=== PATIENT | female | born 1965 | race Caucasian/White ===

== ENCOUNTER 2019-12-07 14:49 | Inpatient (IN) | payer SELFPAY ==
[~2019-12-07] VITALS: Ht 177.8 cm; Wt 123.5 kg
[2019-12-07 14:30] VITALS: BP 149/94
--- NOTE | 2019-12-07 14:30 | NUR ---
Pt arrived to the floor by EMS. Report was received from Nash at [facility]. Dr. Paulino and cardiology notified of pt's arrival.
[2019-12-07] MEDS ORDERED: HEPARIN for IV BOLUS 10,000 UNIT/10 ML VIAL. IV PRN (16:30)
[2019-12-07] MEDS: ASPIRIN ENTERIC COATED 81 MG TABLET.DR. PO SCH (16:30)
[2019-12-07] MEDS ORDERED: HEPARIN 25,000UTS/250ML PREMIX 250 ML IV PRN (16:30)
[2019-12-07 19:20] VITALS: BP 136/83
[2019-12-07] MEDS: METOPROLOL TART IMMED RELEASE 50 MG TABLET. PO SCH (20:39)
[2019-12-07] MEDS ORDERED: ATORVASTATIN CALCIUM 40 MG TABLET. PO SCH (21:00)
--- NOTE | 2019-12-07 21:37 | PDOC1 ---
History and Physical Date of Admission Date of Admission DATE: 12/07/19 TIME: 21:37 Identification/Chief Complaint Chief Complaint chest pain Problems: (1) Chest pain Source Source: Chart review, Patient History of Present Illness History of Present Illness 54 year old obese female with sudden onset of chest pain substernal nonradiating. came to [facility]. found to have normal EKG but elevated trop so sent to [place] for further work up no chest pain on arrival. started on heparin drip. no risk factors per patient. no hx of premature cad. no smoking drugs or etoh no prior cardiac work up. Past Medical History Past Medical History reviewed and denies Past Surgical History Past Surgical History reviewed and denies Family History Family History reviewed and denies Social History Smoke: No ALCOHOL: none Drugs: None Current Medications Current Medications Current Medications Heparin Sodium/ Dextrose 250 ml @ 10 mls/hr CONT PRN IV PER PROTOCOL; Start 12/07/19 at 16:30 Heparin Sodium (Porcine) (Heparin Sodium) 3,050 unit PRN Q6HRS PRN IV FOR UFH LEVEL LESS THAN 0.2; Start 12/07/19 at 16:30 Aspirin (Ecotrin) 81 mg DAILYWBKFT PO ; Start 12/07/19 at 16:30 Atorvastatin Calcium (Lipitor) 40 mg QHS PO Last administered on 12/07/19at 20:38; Start 12/07/19 at 21:00 Metoprolol Tartrate (Lopressor) 50 mg BID PO Last administered on 12/07/19at 20:39; Start 12/07/19 at 21:00 Allergies Allergies: Coded Allergies: No Known Drug Allergies (Unverified , 12/07/19) ROS Review of System CONSTITUTIONAL: No fever or chills EYES: No recent changes SKIN: No rash or itching CARDIOVASCULAR: No chest pain, syncope, palpitations, or edema RESPIRATORY: No SOB or cough GASTROINTESTINAL: No nausea, vomiting or abdominal pain NEUROLOGICAL: No headaches or weakness ENDOCRINE: No cold or heat intolerance GENITOURINARY: No urgency or frequency of urination MUSCULOSKELETAL: No back pain or joint pain LYMPHATICS: No enlarged lymph nodes PSYCHIATRIC: No anxiety or depression Physical Exam Physical Exam GENERAL: No apparent distress. Alert and oriented. HEENT: Head normocephalic, atraumatic. NECK: Supple LUNGS: Clear to auscultation. HEART: RRR, S1, S2 present, pulses intact ABDOMEN: Soft, positive bowel sounds. EXTREMITIES: No cyanosis or edema. NEUROLOGIC: Normal speech, normal tone PSYCHIATRIC: Normal affect, normal mood. SKIN: No ulceration. Vitals Vitals Vital Signs Date Time Temp Pulse Resp B/P (MAP) Pulse Ox O2 Delivery O2 Flow Rate FiO2 12/07/19 20:39 82 136/83 12/07/19 19:20 98.2 16 96 Room Air 98.2 Labs Labs Laboratory Tests Test 12/07/19 20:05 Heparin Anti-Xa Act, Unfractionated 0.44 IU/mL (0.30-0.70) Laboratory Tests Test 12/07/19 20:05 Heparin Anti-Xa Act, Unfractionated 0.44 IU/mL (0.30-0.70) VTE Prophylaxis Ordered VTE Prophylaxis Devices: Yes VTE Pharmacological Prophylaxi: Yes Assessment/Plan Assessment/Plan A/P NSTEMI- admit to cardiac tele bed. trend troponins. start heparin drip. check lipids, BMP, CBC. start BB, statin therapy. await cards eval. NPO past midnight Obesity dvt ppx: heparin full code Justicifation of Admission Dx: Justifications for Admission: Justification of Admission Dx: Yes ZENA ANG MD Dec 07, 2019 21:37
[2019-12-07 23:59] VITALS: BP 110/66
[2019-12-08] VITALS (13 sets, daily range): BP systolic 100–131; BP diastolic 64–87
[2019-12-08] MEDS ORDERED: IODIXANOL 320 MG/ML 100 ML VIAL. ONE (07:37)
[2019-12-08] MEDS ORDERED: LIDOCAINE 1% Multi-Dose 20 ML VIAL. ONE (07:37)
[2019-12-08] MEDS ORDERED: HEPARIN for ARTERIAL LINE 1,500 ML ONE (07:38)
[2019-12-08] MEDS ORDERED: IOHEXOL 300 MG/ML 100ML VIAL. ONE ×2 (07:39→09:26)
[2019-12-08] MEDS: ASPIRIN ENTERIC COATED 81 MG TABLET.DR. PO SCH (08:08)
[2019-12-08] MEDS: METOPROLOL TART IMMED RELEASE 50 MG TABLET. PO SCH (08:08)
[2019-12-08] MEDS ORDERED: MIDAZOLAM HCL/PF 5 MG/5 ML VIAL. ONE (08:16)
[2019-12-08] MEDS ORDERED: fentaNYL PF VIAL 100 MCG/2 ML VIAL ONE (08:16)
[2019-12-08] MEDS ORDERED: HEPARIN for IV BOLUS 10,000 UNIT/10 ML VIAL. ONE (08:47)
[2019-12-08] MEDS ORDERED: VERAPAMIL 5 MG/2 ML VIAL. ONE ×2 (08:47→09:00)
[2019-12-08] MEDS ORDERED: NITROGLYCERIN 200 MCG/2 ML SYRINGE FOR CATH/VASC LAB. ONE (08:48)
--- NOTE | 2019-12-08 09:05 | PDOC ---
PROGRESS NOTES Vitals Vitals Vital Signs Date Time Temp Pulse Resp B/P (MAP) Pulse Ox O2 Delivery O2 Flow Rate FiO2 12/08/19 08:08 67 12/08/19 07:45 97.5 14 131/87 (102) 99 Room Air 97.5 Labs LABS Laboratory Tests Test 12/07/19 20:05 12/08/19 01:50 Heparin Anti-Xa Act, Unfractionated 0.44 IU/mL (0.30-0.70) 0.58 IU/mL (0.30-0.70) Comment Review of Relevant I have reviewed the following items rony (where applicable) has been applied. Labs Laboratory Tests Test 12/07/19 20:05 12/08/19 01:50 Heparin Anti-Xa Act, Unfractionated 0.44 IU/mL (0.30-0.70) 0.58 IU/mL (0.30-0.70) Laboratory Tests Test 12/07/19 20:05 12/08/19 01:50 Heparin Anti-Xa Act, Unfractionated 0.44 IU/mL (0.30-0.70) 0.58 IU/mL (0.30-0.70) Medications Current Medications Heparin Sodium/ Dextrose 250 ml @ 10 mls/hr CONT PRN IV PER PROTOCOL Last administered on 12/08/19at 03:27; Start 12/07/19 at 16:30 Heparin Sodium (Porcine) (Heparin Sodium) 3,050 unit PRN Q6HRS PRN IV FOR UFH LEVEL LESS THAN 0.2; Start 12/07/19 at 16:30 Aspirin (Ecotrin) 81 mg DAILYWBKFT PO Last administered on 12/08/19at 08:08; Start 12/07/19 at 16:30 Atorvastatin Calcium (Lipitor) 40 mg QHS PO Last administered on 12/07/19at 20:38; Start 12/07/19 at 21:00 Metoprolol Tartrate (Lopressor) 50 mg BID PO Last administered on 12/08/19at 08:08; Start 12/07/19 at 21:00 Iodixanol (Visipaque 320) 100 ml STK-MED ONCE .ROUTE ; Start 12/08/19 at 07:37; Stop 12/08/19 at 07:37; Status DC Lidocaine HCl (Lidocaine 1% 20ml Vial) 20 ml STK-MED ONCE .ROUTE ; Start 12/08/19 at 07:37; Stop 12/08/19 at 07:37; Status DC Heparin Sodium/ Sodium Chloride 1,500 ml @ As Directed STK-MED ONCE .ROUTE ; Start 12/08/19 at 07:38; Stop 12/08/19 at 07:38; Status DC Iohexol (Omnipaque 300 Mg/ml) 100 ml STK-MED ONCE .ROUTE ; Start 12/08/19 at 07:39; Stop 12/08/19 at 07:40; Status DC Fentanyl Citrate (Fentanyl 2ml Vial) 100 mcg STK-MED ONCE .ROUTE ; Start 12/08/19 at 08:16; Stop 12/08/19 at 08:17; Status DC Midazolam HCl (Versed) 5 mg STK-MED ONCE .ROUTE ; Start 12/08/19 at 08:16; Stop 12/08/19 at 08:17; Status DC Heparin Sodium (Porcine) (Heparin Sodium) 10,000 unit STK-MED ONCE .ROUTE ; Start 12/08/19 at 08:47; Stop 12/08/19 at 08:48; Status DC Verapamil HCl (Verapamil) 5 mg STK-MED ONCE .ROUTE ; Start 12/08/19 at 08:47; Stop 12/08/19 at 08:48; Status DC Nitroglycerin (Nitroglycerin) 200 mcg STK-MED ONCE .ROUTE ; Start 12/08/19 at 08:48; Stop 12/08/19 at 08:48; Status DC Vitals/I & O Vital Sign - Last 24 Hours 12/07/19 12/07/19 12/07/19 12/07/19 14:30 15:00 19:20 20:00 Temp 98.3 98.2 98.3 98.2 Pulse 80 82 Resp 20 16 B/P (MAP) 149/94 (112) 136/83 (100) Pulse Ox 97 96 O2 Delivery Room Air Room Air Room Air Room Air 12/07/19 12/07/19 12/08/19 12/08/19 20:39 23:59 03:22 07:45 Temp 97.8 98.0 97.5 97.8 98.0 97.5 Pulse 82 63 62 71 Resp 16 16 14 B/P (MAP) 136/83 110/66 (81) 119/71 (87) 131/87 (102) Pulse Ox 97 97 99 O2 Delivery Room Air Room Air Room Air 12/08/19 08:08 Pulse 67 Intake and Output 12/07/19 12/07/19 12/08/19 15:00 23:00 07:00 Intake Total 240 ml 350 ml Balance 240 ml 350 ml Justicifation of Admission Dx: Justifications for Admission: Justification of Admission Dx: Yes GLENN MARSHALL MD Dec 08, 2019 09:05
[2019-12-08] MEDS ORDERED: MIDAZOLAM HCL/PF 5 MG/5 ML VIAL. IV ONE (09:30)
[2019-12-08] MEDS ORDERED: fentaNYL PF VIAL 100 MCG/2 ML VIAL IV ONE (09:30)
[2019-12-08] MEDS ORDERED: IOHEXOL 300 MG/ML 100ML VIAL. IART ONE (09:30)
[2019-12-08] MEDS ORDERED: LIDOCAINE 1% Multi-Dose 20 ML VIAL. INJ ONE (09:30)
[2019-12-08] MEDS ORDERED: IV NORMAL SALINE 1000ML BAG 1,000 ML IV SCH (09:51)
[2019-12-08] MEDS ORDERED: NITROGLYCERIN SUBLINGUAL 0.4 MG BOTTLE OF 25. SL PRN (10:00)
[2019-12-08] MEDS ORDERED: 0.9 % SODIUM CHLORIDE 10 ML DISP.SYRIN. IV PRN (10:00)
[2019-12-08] MEDS ORDERED: LISINOPRIL 5 MG TABLET. PO SCH (10:00)
[2019-12-08 10:23] LABS: BASO # 0.1 x10^3/uL (0.0-0.2); BASO % 3 % (0-3); EOS % 1 % (0-3); HEMATOCRIT 43.7 % (36.0-47.0); LYMPH % 29 % (24-48); MEAN CORPUSCULAR HEMOGLOBIN 35 pg (25-35); MEAN CORPUSCULAR HGB CONC 34 g/dL (31-37); MEAN CORPUSCULAR VOLUME 101 fL (79-100); MONO # 0.5 x10^3/uL (0.0-1.1); MONO % 13 % (0-9); NEUT # 1.9 x10^3/uL (1.8-7.7); NEUT % 54 % (31-73); PLATELET COUNT 172 x10^3/uL (140-400); RED BLOOD COUNT 4.33 x10^6/uL (3.50-5.40); RED CELL DISTRIBUTION WIDTH 13.1 % (11.5-14.5); WHITE BLOOD COUNT 3.5 x10^3/uL (4.0-11.0)
[2019-12-08 10:30] LABS: CALCIUM 8.5 mg/dL (8.5-10.1); GFR 57.8; POTASSIUM 4.8 mmol/L (3.5-5.1)
--- NOTE | 2019-12-08 10:41 | NUR ---
SS following for discharge planning. SS reviewed pt chart and discussed with pt RN. Pt is from home and is currently on room air. Pt having heart cath today. Discharge plan is to home when ready. SS will continue to follow for discharge planning.
[2019-12-08 10:45] LABS: CHOLESTEROL/HDL RATIO 2.5
--- NOTE | 2019-12-08 11:39 | CARD ---
MR#: [id number] Date of Study: 12/08/2019 Ordering Physician: ASHLEIGH MAURICE, Referring Physician: ASHLEIGH MAURICE, Tech: Pauline Boobutch APPROVED REPORT Procedures Left heart catheterization Left ventriculogram Selective coronary angiogram Aortic root injection The patient is a 54-year-old female who was admitted to [facility] for episodes of chest pre ssure. Her troponin elevated to 3.4 and she was transferred ported to [facility] for furthe r treatment and probable cardiac catheterization. Risks and benefits of cardiac catheterization were discussed with the patient and she agreed to proceed. After informed consent was obtained the patient was brought to the heart catheterization lab. The ar ea of the right radial artery was prepared in the usual manner with Betadine, sterile draping and loc al anesthetic after normal Michael's test. A quick catheter was used to engage the right radial artery . A wire was placed but on 2 separate occasions the wire could not advance more than approximately 4 inches into the vessel. Therefore the wire was removed and direct pressure was used for hemostasis. We then turned our attention to the area of the right femoral artery which had previously been prep ared. An 18-gauge needle was used to enter the right femoral artery, a wire placed and a 6 [place]ian sh eath placed over the wire. Initially a 6 [place]err[place]ian JL4 diagnostic catheter was advanced to the ascendin g aorta. There was some damping on 2 occasions and therefore the catheter was removed. A pigtail ca theter was advanced the ascending aorta and a 30 degree YORUBA aortic root injection was performed. The catheter was then advanced the left ventricle. A 30 degree FREEMAN left ventriculogram was performed. Pullback pressures were measured. Following this and the finding of a normal aortic root, a 6 [place]erratian JL4 diagnostic catheter was used to engage the left coronary system and sequential injections of shelby ious views were obtained. A 6 [place]ian Clint right diagnostic catheter was used to engage the right coronary artery and sequential injections in various views were obtained. The catheter was removed from the patient. All catheter exchanges were over a J-wire. The sheath was removed and the punctur e site sealed with an Angio-Seal product. There were no immediate complications. Findings. Hemodynamics. LV pressure of 128/12, 22. Aortic root pressure of 128/80. Coronaries. Left main. The left main was normal vessel with no lesions. Left anterior descending. The left anterior descending was a moderate to moderately large vessel. I n its midportion it had an abrupt taper. There was no clear lesion at this point but the patient had mild diffuse disease of the remaining of the vessel. No specific lesion was identified but an episo de of a previous spontaneous coronary dissection cannot be excluded. Left circumflex. The left circumflex was a large dominant vessel. It had a proximal 25% lesion. Right coronary artery. The right coronary was a moderate size vessel. It was non-dominant. It had no lesions. Left ventriculogram. The left ventricle had distal anterior apical hypokinesis. Ejection fraction was estimated at 40%. Aortic root injection. The aortic root appeared normal without dilatation or aortic insufficiency. <Conclusion> Mildly decreased LV systolic function as above with distal anterior apical hypokinesis. Mild disease in the left circumflex vessel. The left anterior descending vessel has a rapid taper in its midportion with a diffusely small vessel distal to this. There are no localized significant lesions. However a previous episode of possible spontaneous coronary artery dissection cannot be excluded. Signed by : Nash Fisher MD Electronically Approved : 12/08/2019 11:38:37
[2019-12-08] MEDS ORDERED: CLOP75TA PO (14:22)
[2019-12-08] MEDS ORDERED: ATOR40TA59 PO (14:22)
[2019-12-08] MEDS ORDERED: ASPI-612 PO (14:22)
[2019-12-08] MEDS ORDERED: METO-239 PO (14:22)
[2019-12-08] MEDS ORDERED: LEVO50TA PO (14:24)
--- NOTE | 2019-12-08 14:38 | PDOC3 ---
Discharge Summary Visit Information Date of Admission: Dec 07, 2019 Date of Discharge: Dec 08, 2019 Brief Hospital Course Allergies Allergies Coded Allergies Type Severity Reaction Last Updated Verified No Known Drug Allergies 12/07/19 No Vital Signs Vital Signs Date Time Temp Pulse Resp B/P (MAP) Pulse Ox O2 Delivery O2 Flow Rate FiO2 12/08/19 13:13 72 100/64 12/08/19 11:00 97.5 18 93 Room Air 97.5 12/08/19 09:49 2.0 Lab Results Laboratory Tests Test 12/07/19 20:05 12/08/19 01:50 12/08/19 10:15 Heparin Anti-Xa Act, Unfractionated 0.44 IU/mL (0.30-0.70) 0.58 IU/mL (0.30-0.70) White Blood Count 3.5 x10^3/uL (4.0-11.0) Red Blood Count 4.33 x10^6/uL (3.50-5.40) Hemoglobin 15.0 g/dL (12.0-15.5) Hematocrit 43.7 % (36.0-47.0) Mean Corpuscular Volume 101 fL (79-100) Mean Corpuscular Hemoglobin 35 pg (25-35) Mean Corpuscular Hemoglobin Concent 34 g/dL (31-37) Red Cell Distribution Width 13.1 % (11.5-14.5) Platelet Count 172 x10^3/uL (140-400) Neutrophils (%) (Auto) 54 % (31-73) Lymphocytes (%) (Auto) 29 % (24-48) Monocytes (%) (Auto) 13 % (0-9) Eosinophils (%) (Auto) 1 % (0-3) Basophils (%) (Auto) 3 % (0-3) Neutrophils # (Auto) 1.9 x10^3/uL (1.8-7.7) Lymphocytes # (Auto) 1.0 x10^3/uL (1.0-4.8) Monocytes # (Auto) 0.5 x10^3/uL (0.0-1.1) Eosinophils # (Auto) 0.0 x10^3/uL (0.0-0.7) Basophils # (Auto) 0.1 x10^3/uL (0.0-0.2) Sodium Level 138 mmol/L (136-145) Potassium Level 4.8 mmol/L (3.5-5.1) Chloride Level 103 mmol/L (98-107) Carbon Dioxide Level 30 mmol/L (21-32) Anion Gap 5 (6-14) Blood Urea Nitrogen 16 mg/dL (7-20) Creatinine 1.0 mg/dL (0.6-1.0) Estimated GFR (Cockcroft-Gault) 57.8 Glucose Level 113 mg/dL (70-99) Calcium Level 8.5 mg/dL (8.5-10.1) Triglycerides Level 74 mg/dL (0-150) Cholesterol Level 161 mg/dL (0-200) LDL Cholesterol, Calculated 82 mg/dL (0-100) VLDL Cholesterol, Calculated 15 mg/dL (0-40) Non-HDL Cholesterol Calculated 97 mg/dL (0-129) HDL Cholesterol 64 mg/dL (40-60) Cholesterol/HDL Ratio 2.5 Thyroid Stimulating Hormone (TSH) 8.914 uIU/mL (0.358-3.74) Laboratory Tests Test 12/07/19 20:05 12/08/19 01:50 12/08/19 10:15 Heparin Anti-Xa Act, Unfractionated 0.44 IU/mL (0.30-0.70) 0.58 IU/mL (0.30-0.70) White Blood Count 3.5 x10^3/uL (4.0-11.0) Red Blood Count 4.33 x10^6/uL (3.50-5.40) Hemoglobin 15.0 g/dL (12.0-15.5) Hematocrit 43.7 % (36.0-47.0) Mean Corpuscular Volume 101 fL (79-100) Mean Corpuscular Hemoglobin 35 pg (25-35) Mean Corpuscular Hemoglobin Concent 34 g/dL (31-37) Red Cell Distribution Width 13.1 % (11.5-14.5) Platelet Count 172 x10^3/uL (140-400) Neutrophils (%) (Auto) 54 % (31-73) Lymphocytes (%) (Auto) 29 % (24-48) Monocytes (%) (Auto) 13 % (0-9) Eosinophils (%) (Auto) 1 % (0-3) Basophils (%) (Auto) 3 % (0-3) Neutrophils # (Auto) 1.9 x10^3/uL (1.8-7.7) Lymphocytes # (Auto) 1.0 x10^3/uL (1.0-4.8) Monocytes # (Auto) 0.5 x10^3/uL (0.0-1.1) Eosinophils # (Auto) 0.0 x10^3/uL (0.0-0.7) Basophils # (Auto) 0.1 x10^3/uL (0.0-0.2) Sodium Level 138 mmol/L (136-145) Potassium Level 4.8 mmol/L (3.5-5.1) Chloride Level 103 mmol/L (98-107) Carbon Dioxide Level 30 mmol/L (21-32) Anion Gap 5 (6-14) Blood Urea Nitrogen 16 mg/dL (7-20) Creatinine 1.0 mg/dL (0.6-1.0) Estimated GFR (Cockcroft-Gault) 57.8 Glucose Level 113 mg/dL (70-99) Calcium Level 8.5 mg/dL (8.5-10.1) Triglycerides Level 74 mg/dL (0-150) Cholesterol Level 161 mg/dL (0-200) LDL Cholesterol, Calculated 82 mg/dL (0-100) VLDL Cholesterol, Calculated 15 mg/dL (0-40) Non-HDL Cholesterol Calculated 97 mg/dL (0-129) HDL Cholesterol 64 mg/dL (40-60) Cholesterol/HDL Ratio 2.5 Thyroid Stimulating Hormone (TSH) 8.914 uIU/mL (0.358-3.74) Brief Hospital Course 54 year old obese female with sudden onset of chest pain substernal nonradiating. came to [place] [facility]. found to have normal EKG but elevated trop so sent to [place] for further work up. no chest pain on arrival. started on heparin drip. no risk factors per patient. no hx of premature cad. no smoking drugs or etoh no prior cardiac work up. NSTEMI s/p cath showing Mildly decreased LV systolic function as above with distal anterior apical hypokinesis. Mild disease in the left circumflex vessel. The left anterior descending vessel has a rapid taper in its midportion with a diffusely small vessel distal to this. There are no localized significant lesions. However a previous episode of possible spontaneous coronary artery dissection cannot be excluded. cards recommended ASA plavix. start statin therapy althought lipids okay. change to long acting BB given reduced Ef 40% based on cath. hold off on RUFINO-I given soft BP. elevated TSH. start synthroid. scripts sent to pharmacy. lifestyle and diet modifications. okay to dc if cleared by cards. follow up with cards as outpatient. Discharge Information Condition at Discharge: Improved Follow Up: Weeks Disposition/Orders: D/C to Home Scheduled Aspirin (Aspirin Ec) 81 Mg Tablet.dr, 81 MG PO DAILYWBKFT for cad for 30 Days, #30 Ref 1 Prescribed by: ZENA ANG MD on 12/08/19 1422 Atorvastatin Calcium (Atorvastatin Calcium) 40 Mg Tablet, 40 MG PO QHS for hld for 30 Days, #30 Ref 1 Prescribed by: ZENA ANG MD on 12/08/19 1422 Clopidogrel Bisulfate (Clopidogrel) 75 Mg Tablet, 75 MG PO DAILYWBKFT for hld for 30 Days, #30 Ref 1 Prescribed by: ZENA ANG MD on 12/08/19 1422 Levothyroxine Sodium (Synthroid) 50 Mcg Tablet, 1 TAB PO DAILY for hypot hyroidism, #30 Ref 1 Prescribed by: ZENA ANG MD on 12/08/19 1424 Metoprolol Succinate (Metoprolol Succinate ( Xl )) 25 Mg Tab.er.24h, 1 TAB PO DAILY for htn for 30 Days, #30 Ref 1 Prescribed by: ZENA ANG MD on 12/08/19 1422 Justicifation of Admission Dx: Justifications for Admission: Justification of Admission Dx: Yes ZENA ANG MD Dec 08, 2019 14:38
--- NOTE | 2019-12-08 16:15 | NUR ---
Discharge Note: ANTIONE MOSQUEDA Discharge instructions and discharge home medications reviewed with Patient and a copy given. All questions have been answered and understanding verbalized. The following instructions and handouts were given: s/p cath education, medication education, ALL NEW MEDS, follow up instructions Discontinued lines and drains: peripheral IV, dressing clean, dry and intact. Patient discharged to home with friend via ambulation
[2019-12-09 02:09] LABS: HEMOGLOBIN A1C 4.9 % (4.8-5.6)
[2019-12-09] MEDS ORDERED: CLOPIDOGREL BISULFATE 75 MG TABLET PO SCH (08:00)
== END 2019-12-08 16:10 | disposition home or self-care (01) | DRG 282 ==
LOC: 2 NORTH 14:49
PROVIDERS: ADMIT Internal Medicine; ATTEND Internal Medicine
PROC: 4A023N7 Measurement of Cardiac Sampling and Pressure, Left Heart, Percutaneous Approach (ICD-10-PCS; principal; 2019-12-07)
PROC: B2111ZZ Fluoroscopy of Multiple Coronary Arteries using Low Osmolar Contrast (ICD-10-PCS; 2019-12-07)
PROC: B2151ZZ Fluoroscopy of Left Heart using Low Osmolar Contrast (ICD-10-PCS; 2019-12-07)
PROC: B3101ZZ Fluoroscopy of Thoracic Aorta using Low Osmolar Contrast (ICD-10-PCS; 2019-12-07)
DX: I21.4 Non-ST elevation (NSTEMI) myocardial infarction (principal); E66.9 Obesity, unspecified; Z68.39 Body mass index [BMI] 39.0-39.9, adult; I25.10 Atherosclerotic heart disease of native coronary artery without angina pectoris; E03.9 Hypothyroidism, unspecified; E78.5 Hyperlipidemia, unspecified; I10 Essential (primary) hypertension
CPT/HCPCS: 93458; 93567; G0269; 36415; 80048; 80061; 83036; 84443; 85025; 85520; 99152; 99153; C1760; C1769; C1892; J1644; J2250; J3010; J3490; J7030; Q9967; C1771; G0378